=== PATIENT | male | born 1970 | race African-American/Black ===

== ENCOUNTER 2017-10-19 23:54 | Inpatient (IN) | payer OTHER ==
[2017-10-20] MEDS ORDERED: Labetalol HCl 100 MG/20 ML VIAL ONE (00:20)
[2017-10-20] MEDS ORDERED: Furosemide 100 MG/10 ML VIAL ONE (00:38)
[2017-10-20 00:39] LABS: #Eosinphils 0.2 thou/uL (0.0-0.7); #Lymphocytes 1.6 thou/uL (1.20-3.40); #Monocytes 0.7 thou/uL (0.11-0.59); #Neutrophils 8.6 thou/uL (1.40-6.50); %Basophils 0.4 % (0.0-1.0); %Eosinophils 2.2 % (0.0-10.0); %Lymphocytes 14.2 % (21.0-51.0); %Monocytes 6.1 % (0.0-10.0); Hemoglobin 12.1 g/dL (14.0-18.0); Mean Corpuscular Hemoglobin 27.9 pg (27.0-31.0); Mean Corpuscular Volume 82.2 fL (78.0-98.0); Mean Platelet Volume 6.8 fL (7.4-10.4); Platelet Count 323 thou/uL (130-400); RBC Distribution Width 14.2 % (11.5-14.5); Red Blood Cell (RBC) Count 4.32 mill/uL (4.70-6.10); White Blood Cell (WBC) Count 11.2 thou/uL (4.8-10.8)
[2017-10-20 00:44] LABS: Prothrombin Time 13.4 SEC (12.0-14.7)
[2017-10-20 01:02] LABS: ALT (SGPT) 16 U/L (8-55); AST (SGOT) 17 U/L (5-34); Albumin 3.8 g/dL (3.5-5.0); Alkaline Phosphatase 96 U/L (40-150); Anion Gap 13 mmol/L (10-20); BUN (Urea Nitrogen) 17 mg/dL (8.9-20.6); Bilirubin, Total 0.6 mg/dL (0.2-1.2); CK (CPK) 581 U/L (30-200); Calc. Creatinine Clearance 0 mL/min (70-130); Calcium 8.8 mg/dL (7.8-10.44); Carbon Dioxide 26 mmol/L (22-29); Chloride 104 mmol/L (98-107); Estimated GFR-MDRD 81; Globulin 3.4 g/dL (2.4-3.5); Glucose 189 mg/dL (70-105); Potassium 3.7 mmol/L (3.5-5.1); Protein, Total 7.2 g/dL (6.0-8.3); Sodium 139 mmol/L (136-145)
[2017-10-20 01:06] LABS: CKMB 5.6 ng/mL (0-6.6); Troponin I 0.032 ng/mL (< 0.028)
[2017-10-20] MEDS ORDERED: Nitroglycerin 2% Ointment 1 INCH/1 GM Packet ONE (01:13)
[2017-10-20] MEDS ORDERED: Ondansetron ODT 4 MG TAB SL PRN (02:16)
[2017-10-20] MEDS ORDERED: Ondansetron HCl/PF 4 MG/2 ML Vial IVP PRN (02:16)
[2017-10-20 02:25] VITALS: BMI 33.3
[2017-10-20] MEDS ORDERED: Dextrose 5% in Water 1,000 ML IV PRN (03:56)
[2017-10-20] MEDS ORDERED: Dextrose 50% Abboject 50 ML SYRINGE SLOW IVP PRN (03:56)
[2017-10-20] MEDS ORDERED: Ondansetron ODT 4 MG TAB PO PRN (03:56)
[2017-10-20] MEDS ORDERED: Acetaminophen 325 MG TAB PO PRN (03:56)
[2017-10-20] MEDS ORDERED: Insulin Regular 300 UNITS/3 ML VIAL SC PRN ×2 (03:58)
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
[2017-10-20] MEDS: Furosemide 40 MG/4 ML VIAL SLOW IVP SCH ×2 (06:10→15:21)
[2017-10-20] MEDS: Levothyroxine Sodium 50 MCG TAB PO SCH (06:10)
[2017-10-20 07:03] LABS: Troponin I 0.044 ng/mL (< 0.028)
--- NOTE | 2017-10-20 07:59 | RAD ---
1 VIEW CHEST: Date: 10/20/17 HISTORY: Chest pain. FINDINGS: Comparison made to previous exam from 10/07/16. AP view of chest demonstrates cardiomegaly seen. Pulmonary vascular congestion seen. There are diffuse air space opacities bilaterally compatible with pulmonary edema. No evidence of pne umothorax seen. IMPRESSION: Cardiomegaly, pulmonary vascular congestion, and perihilar air space opacities concerning for congest merari heart failure. POS: [facility]
[2017-10-20] MEDS: hydrALAZINE 25 MG TAB PO SCH ×2 (08:38→21:00)
[2017-10-20] MEDS: Ramipril 5 MG CAP PO SCH (08:38)
[2017-10-20] MEDS: Gabapentin 300 MG CAP PO SCH ×2 (08:38→21:00)
[2017-10-20] MEDS: Carvedilol 25 MG TAB PO SCH ×2 (08:39→20:59)
[2017-10-20] MEDS: cloNIDine 0.2 MG TAB PO SCH ×2 (08:39→20:59)
[2017-10-20] MEDS: Potassium Chloride 20 MEQ TAB PO SCH (08:39)
[2017-10-20] MEDS: Famotidine 20 MG TAB PO SCH ×2 (08:39→20:59)
[2017-10-20] MEDS: NIFEdipine XL 90 MG TAB PO SCH (08:40)
[2017-10-20] MEDS: Enoxaparin Sodium 40 MG/0.4 ML SYRINGE SC SCH (08:40)
[2017-10-20] MEDS ORDERED: Naproxen 500 MG TAB PO SCH (09:00)
[2017-10-20] MEDS ORDERED: Albuterol Sulfate 1.25 MG/3 ML NEB NEB PRN (10:57)
[2017-10-20] MEDS: Insulin NPH/Reg Insulin Hm 300 UNITS/3 ML VIAL SC SCH ×2 (11:12→21:05)
[2017-10-20] MEDS: Terbinafine 250 MG TAB PO SCH (11:15)
[2017-10-20 18:32] LABS: Amphetamine Detected (NotDetected); Barbiturates Screen Not Detected (NotDetected); Benzodiazepine Screen Not Detected (NotDetected); Cocaine Metabolite Screen Not Detected (NotDetected); Medtox Control Line Valid? VALID (VALID); Medtox Reader # READER 4; Methadone Not Detected (NotDetected); Methamphetamine Not Detected (NotDetected); Opiate Screen Not Detected (NotDetected); Oxycodone Screen Not Detected (NotDetected); Phencyclidine (PCP) Not Detected (NotDetected); THC/Cannabinoid Screen Not Detected (NotDetected); Tricyclic Screen Not Detected (NotDetected)
[2017-10-20] MEDS ORDERED: diphenhydrAMINE 25 MG CAP PO SCH (21:00)
[2017-10-20] MEDS ORDERED: Alogliptin 25 MG TAB PO SCH (21:00)
[2017-10-21] MEDS: Levothyroxine Sodium 50 MCG TAB PO SCH (05:25)
[2017-10-21] MEDS: Furosemide 40 MG/4 ML VIAL SLOW IVP SCH (05:25)
[2017-10-21 06:17] LABS: #Eosinphils 0.2 thou/uL (0.0-0.7); #Lymphocytes 1.6 thou/uL (1.20-3.40); #Monocytes 0.7 thou/uL (0.11-0.59); #Neutrophils 4.7 thou/uL (1.40-6.50); %Basophils 0.5 % (0.0-1.0); %Eosinophils 3.4 % (0.0-10.0); %Lymphocytes 21.4 % (21.0-51.0); %Monocytes 10.1 % (0.0-10.0); %Neutrophils 64.6 % (42.0-75.0); Hemoglobin 10.7 g/dL (14.0-18.0); Mean Corpuscular HGB CONC 32.5 g/dL (32.0-36.0); Mean Corpuscular Hemoglobin 27.5 pg (27.0-31.0); Mean Corpuscular Volume 84.7 fL (78.0-98.0); Mean Platelet Volume 7.4 fL (7.4-10.4); Platelet Count 292 thou/uL (130-400); RBC Distribution Width 14.3 % (11.5-14.5); Red Blood Cell (RBC) Count 3.88 mill/uL (4.70-6.10); White Blood Cell (WBC) Count 7.2 thou/uL (4.8-10.8)
[2017-10-21 06:44] LABS: Anion Gap 13 mmol/L (10-20); BUN (Urea Nitrogen) 24 mg/dL (8.9-20.6); Calc. Creatinine Clearance 96 mL/min (70-130); Carbon Dioxide 25 mmol/L (22-29); Cardiac Risk 3.9 (Less than 4.5); Chloride 106 mmol/L (98-107); Cholesterol 154 mg/dl (< 200 Desired); Estimated GFR-MDRD 61; Glucose 80 mg/dL (70-105); HDL Cholesterol 40 mg/dL (>60 Neg Risk); LDL Cholesterol, Calculated 87 mg/dL; Phosphorus 4.7 mg/dL (2.3-4.7); Potassium 3.3 mmol/L (3.5-5.1); Sodium 141 mmol/L (136-145); Triglycerides 136 mg/dL (Less than 150)
--- NOTE | 2017-10-21 08:56 | PDOC.FM ---
- Subjective Subjective: 47 yo M with PHx of HFrEF, HTN, DM and hypothyroidism here with CHF exacerbation. Pt states that his chest pain has resolved and he is breathing easier today than yesterday. There were no acute events over night - Objective MAR Reviewed: Yes Vital Signs & Weight: Vital Signs (12 hours) Temp Pulse Resp BP BP Pulse Ox 10/21/17 04:04 97.4 F L 70 17 131/76 94 L 10/20/17 23:48 94 L 10/20/17 21:02 118/65 10/20/17 21:00 118/65 10/20/17 20:59 118/65 Weight Weight 109.86 kg I&O: 10/20/17 10/21/17 10/22/17 06:59 06:59 06:59 Intake Total 490 Output Total 1200 Balance -710 Result Diagrams: 10/21/17 05:20 10/21/17 05:20 <Christian Ashley - Last Filed: 10/21/17 08:54> - Objective Vital Signs & Weight: Vital Signs (12 hours) Temp Pulse Resp BP Pulse Ox 10/21/17 09:33 70 122/66 10/21/17 08:00 98.2 F 70 18 94 L Weight Weight 109.86 kg I&O: 10/20/17 10/21/17 10/22/17 06:59 06:59 06:59 Intake Total 490 Output Total 1200 Balance -710 Result Diagrams: 10/21/17 05:20 10/21/17 05:20 <Rocio Davis - Last Filed: 10/21/17 16:19> Phys Exam - Physical Examination Constitutional: NAD HEENT: moist MMs, sclera anicteric Neck: no JVD, full ROM Respiratory: no wheezing, no rhonchi Mild rales in bases Cardiovascular: RRR, no significant murmur Gastrointestinal: soft, non-tender Musculoskeletal: pulses present 1+ pitting edema on to R tibia, trace on L LE Neurological: non-focal, moves all 4 limbs Psychiatric: normal affect, A&O x 3 Skin: no rash, normal turgor <Christian Ashley - Last Filed: 10/21/17 08:54> Dx/Plan (1) Acute exacerbation of CHF (congestive heart failure) Code(s): I50.9 - HEART FAILURE, UNSPECIFIED Status: Acute (2) Elevated troponin Code(s): R74.8 - ABNORMAL LEVELS OF OTHER SERUM ENZYMES Status: Acute (3) Leukocytosis Code(s): D72.829 - ELEVATED WHITE BLOOD CELL COUNT, UNSPECIFIED Status: Acute (4) Prolonged QT interval Code(s): R94.31 - ABNORMAL ELECTROCARDIOGRAM [ECG] [EKG] Status: Acute (5) Hypertensive urgency Code(s): I16.0 - HYPERTENSIVE URGENCY Status: Acute (6) Anemia, normocytic normochromic Code(s): D64.9 - ANEMIA, UNSPECIFIED Status: Chronic (7) Diabetes type 2, controlled Code(s): E11.9 - TYPE 2 DIABETES MELLITUS WITHOUT COMPLICATIONS Status: Chronic - Plan Plan: Acute Hypoxic Respiratory Failure 2/2 HFrEF exacerbation - Pt net output 710 mL, and symptomatically much improved though he still has an O2 requirement. - echo shows EF of 40-45% with moderate MR and severe LA dilation - will work to wean O2 today, home when back on room air - daily wts/ strict IO - fluid restriction Normocytic Anemia - Hg 12.1, no 10.7 - Given net diuresis yesterday, I would have expected a increase. No concern for acute bleed. Pt denies bloody stool. Will order FOBT Leukocytosis - resolved Prolonged QTc - monitor on tele HTN - continue home meds GERD - continue home meds IDDM - ACHS accuchecks - SSI - continue home 70/30 Hypothyroidism - TSH normal range - continue home synthroid Peripheral Neuropathy - continue home gabapentin Hypertensive Urgency - resolved Elevated Troponin - down trending after 3 Atypical CP - resolved Dispo: Likely < 48h. <Christian Ashley - Last Filed: 10/21/17 08:54> Attending Addendum - Attending Addendum Date/Time: 10/21/17 8703 I personally evaluated the patient and discussed the management with Dr. Aguilar and Dr. Ashley I agree with the History, Examination, Assessment and Plan documented above with any addition or exceptions noted below. Concern for secondary HTN. Will rule out DELISA due to presentation of HTN urgency and now elevated Cr. Renal sono with dopplers today. Still requiring supplemental O2. Evaluate walking O2 sat. No pulmonary HTN on ECHO reported. Heart failure mild. Will obtain CT chest to further evaluate lung parenchyma. Will start treatment for mild COPD as well. Patient with history of smoking. UDS pos. Likely contribution to present condition. Susi <Rocio Davis - Last Filed: 10/21/17 16:19>
[2017-10-21] MEDS ORDERED: Potassium Chloride 20 MEQ TAB PO SCH (09:00)
[2017-10-21] MEDS: Insulin NPH/Reg Insulin Hm 300 UNITS/3 ML VIAL SC SCH (09:32)
[2017-10-21] MEDS: NIFEdipine XL 90 MG TAB PO SCH (09:33)
[2017-10-21] MEDS: Famotidine 20 MG TAB PO SCH (09:33)
[2017-10-21] MEDS: Potassium Chloride 20 MEQ TAB PO SCH (09:34)
[2017-10-21] MEDS: Gabapentin 300 MG CAP PO SCH (09:34)
[2017-10-21] MEDS: hydrALAZINE 25 MG TAB PO SCH (09:34)
[2017-10-21] MEDS: Carvedilol 25 MG TAB PO SCH (09:34)
[2017-10-21] MEDS: cloNIDine 0.2 MG TAB PO SCH (09:34)
[2017-10-21] MEDS: Ramipril 5 MG CAP PO SCH (09:34)
[2017-10-21] MEDS: Enoxaparin Sodium 40 MG/0.4 ML SYRINGE SC SCH (09:35)
[2017-10-21] MEDS: Terbinafine 250 MG TAB PO SCH (09:35)
--- NOTE | 2017-10-21 12:42 | CT ---
CT CHEST WITHOUT CONTRAST: Date: 10/21/17 HISTORY: Hypoxia, chest pain, shortness of breath. FINDINGS: Absence of IV contrast reduces the sensitivity of exam, particularly for evaluation of mediastinal hi lar, and vascular structures. No evidence of aneurysmal dilatation of the thoracic aorta is seen. No pericardial effusion is noted. There are tiny bilateral pleural effusions with adjacent mild infiltrate/atelectatic changes. No pne umothoraces, lobar consolidation, pulmonary nodules/lung masses are seen. There are degenerative chávez ges in the spine. IMPRESSION: Bilateral tiny pleural effusions with adjacent mild atelectatic changes versus mild infiltrates. POS: [facility]
--- NOTE | 2017-10-21 14:59 | ULT ---
RENAL SONOGRAM RENAL DOPPLER EVALUATION WITH SPECTRAL ANALYSIS AND COLOR FLOW EVALUATION: DATE: 10/21/17. HISTORY: Secondary hypertension. FINDINGS: The kidneys demonstrate a normal sonographic appearance bilaterally without evidence of a renal mass, renal calculus, or hydronephrosis. The right kidney measures 9 cm x 4.8 cm with the left kidney ceci suring 10.4 cm x 4.9 cm. The urinary bladder demonstrates a normal sonographic appearance. The prevoid urinary bladder volume is 193.5 mL. RENAL DOPPLER EVALUATION WITH SPECTRAL ANALYSIS AND COLOR FLOW EVALUATION: This portion of the examination is limited as the patient refused to remain stationary and following breathing instructions. A peak systolic velocity in the left renal artery is significantly decreased at 36.6 cm/s. Peak systolic velocity in the right renal artery is 13.8 cm/s with a peak systolic ve locity in the abdominal aorta of 142.4 cm/s. The right renal artery to aorta ratio was 0.73 and the left renal artery to aorta ratio of 0.26. The resistive index in the right arcuate artery is 0.75 and on the left is 0.68. IMPRESSION: 1. Normal appearance of the bilateral kidneys without evidence of hydronephrosis. 2. Limited evaluation of the renal Doppler portion of the examination. There is an asymmetrically d iminished peak systolic velocity in the left renal artery. I am unsure if this is secondary to techn ique and patient's inability to follow instructions or whether this is a true value and represents di minished peak systolic velocity due to a more proximal stenosis. If the patient is unable to have a contrasted CT angiogram of the abdomen, a noncontrast MRA of the abdomen may be helpful for further e valuation. POS: [facility]
[2017-10-21 17:10] VITALS: BP 105/63; TEMP 97.2
[2017-10-21] MEDS ORDERED: predniSONE 20 MG TAB PO SCH (17:15)
--- NOTE | 2017-10-22 02:27 | DIS-2 ---
DATE OF ADMISSION: 10/20/2017 DATE OF DISCHARGE: 10/21/2017 RESIDENT: Christian Ashley D.O. ADMITTING ATTENDING: Rocio Davis M.D. DISCHARGE ATTENDING: Rocio Davis M.D. CONSULTS: None. PROCEDURES: Echocardiogram on 10/20/2017, finding a mildly increased left ventricle ejection fractio n of 40%-45%, severe left atrial dilation, moderate mitral regurgitation, mild tricuspid regurgitatio n. Chest x-ray finding cardiomegaly, pulmonary vascular congestion, and perihilar space opacities co ncerning for congestive heart failure. Chest CT on 10/21/2017, finding bilateral tiny pleural effusi ons with adjacent mild atelectatic changes versus mild infiltrates and renal ultrasound on 10/21/2017 , finding normal appearing kidneys without hydronephrosis however limited evaluation of the Doppler. There was found an asymmetrically diminished peak systolic velocity of the left renal artery with re commended follow up CT angio or noncontrast MRA of the abdomen for further evaluation for secondary h ypertension. DISCHARGE MEDICATIONS: Hydralazine 25 mg p.o. b.i.d., Benadryl 50 mg p.o. q.p.m., naproxen 500 mg p. o. b.i.d., methyldopa 1000 mg p.o. b.i.d., famotidine 40 mg p.o. b.i.d., Januvia 100 mg p.o. q.a.m., Catapres 0.2 mg p.o. b.i.d., Lamisil 250 mg p.o. q.a.m., ramipril 10 mg p.o. q.a.m., potassium chlori de 20 mEq p.o. daily, nifedipine 90 mg p.o. daily, levothyroxine 50 mcg p.o. q.a.m., Humulin 70/30 of 60 units subcutaneous b.i.d., gabapentin 600 mg p.o. b.i.d., carvedilol 25 mg p.o. b.i.d. DISCONTINUED MEDICATIONS: None. BRIEF HOSPITAL COURSE: This is a 47-year-old male with a past medical history of diabetes, hypertens ion, congestive heart failure, and hypothyroid, who was admitted for 1-2 weeks of worsening dyspnea o n exertion, orthopnea, and lower extremity edema with a diffuse pleuritic type chest pain. He was ad mitted for concern of congestive heart failure and diuresed over the course of the hospitalization, a s he did have a new oxygen requirement. He is typically on no oxygen, however, required 2 liters of oxygen to maintain saturations above 90%. After administration of IV Lasix, the patient quickly had resolution of symptoms with shortness of breath and chest pain. Initial troponins were indeterminate 0.032 followed by 0.050 and then down trending 0.044, this is likely all related to demand ischemia. In addition, it is noted that on the second day of admission, the patient was slightly hypokalemic at 3.3 this is most likely due to an increased Lasix dose from his typical dose. He also had a sligh t change in his creatinine up to 1.51 also likely due to diuresis and increase Lasix from baseline. Over the course of the second day of admission, the patient was successfully weaned off oxygen and wa s satting 100% with walking oxygen also at 100% on room air prior to discharge. Additionally, while admitted there is concern for the secondary hypertension given that the patient i s on four antihypertensives and still has issues with his blood pressure. Therefore, a workup for se condary hypertension was initiated with renal ultrasound as above. It is recommended that in the out patient setting, patient has been having additional abdominal vascular studies to look for renal tom ry stenosis. The patient also given the patient's habitus, it would be reasonable to have a sleep st udy done in the outpatient setting to look for obstructive sleep apnea as the most likely cause of th is resistant hypertension. DISPOSITION: Stable. DISCHARGE INSTRUCTIONS: 1. Location: [facility]. 2. Activity: Ad-paige. 3. Diet: Heart healthy, low sodium, and 1500 mL fluid restriction. 4. Follow up with PCP within 1 week.
[2017-10-22] MEDS ORDERED: predniSONE 20 MG TAB PO SCH (08:00)
== END 2017-10-21 18:49 | DRG 291 ==
LOC: ERS 23:54 → 2NO 10-20 01:58
PROVIDERS: ADMIT Family Medicine; ATTEND Family Medicine
DX: I11.0 Hypertensive heart disease with heart failure (principal); J96.01 Acute respiratory failure with hypoxia; E11.9 Type 2 diabetes mellitus without complications; I50.23 Acute on chronic systolic (congestive) heart failure; I16.0 Hypertensive urgency; E11.42 Type 2 diabetes mellitus with diabetic polyneuropathy; E03.9 Hypothyroidism, unspecified; R74.8 Abnormal levels of other serum enzymes; D72.829 Elevated white blood cell count, unspecified; D64.9 Anemia, unspecified; K21.9 Gastro-esophageal reflux disease without esophagitis
CPT/HCPCS: 36415; 36416; 71045; 71250; 76700; 76770; 80048; 80053; 80061; 80306; 82550; 82553; 83735; 83880; 84100; 84443; 84484; 85025; 85610; 85730; 93005; 93010; 93306; 96374; 96375; A4216; J1650; J1940

== ENCOUNTER 2019-03-15 12:56 | Outpatient (CLI) | payer OTHER | END 2019-03-15 12:57 | disposition home or self-care (01) | LOC: ULT 12:56 | PROVIDERS: ATTEND Family Medicine | DX: Z53.9 Procedure and treatment not carried out, unspecified reason (principal) | CPT/HCPCS: 93306 ==

== ENCOUNTER 2022-11-07 21:19 | Inpatient (IN) | payer SELFPAY ==
[2022-11-07] MEDS ORDERED: hydrALAZINE 20 MG/ML VIAL ONE (21:53)
[2022-11-07 22:14] LABS: #Basophils 0.1 thou/uL (0.0-0.2); #Eosinphils 0.1 thou/uL (0.0-0.7); #Monocytes 0.8 thou/uL (0.11-0.59); #Neutrophils 6.6 thou/uL (1.40-6.50); %Basophils 0.5 % (0.0-1.0); %Eosinophils 1.5 % (0.0-10.0); %Lymphocytes 20.8 % (21.0-51.0); Hemoglobin 12.2 g/dL (14.0-18.0); Mean Corpuscular HGB CONC 33.4 g/dL (32.0-36.0); Mean Corpuscular Volume 86.7 fl (78.0-98.0); Mean Platelet Volume 9.4 fL (7.4-10.4); Platelet Count 322 10x3/uL (130-400); RBC Distribution Width 13.1 % (11.5-14.5); Red Blood Cell (RBC) Count 4.21 mill/uL (4.70-6.10); White Blood Cell (WBC) Count 9.5 10x3/uL (4.8-10.8)
[2022-11-07 22:23] LABS: ALT (SGPT) 9 U/L (8-55); AST (SGOT) 12 U/L (5-34); Albumin 4.1 g/dL (3.5-5.0); Alkaline Phosphatase 110 U/L (40-110); Anion Gap 15 mmol/L (10-20); BUN (Urea Nitrogen) 28 mg/dL (8.9-20.6); Bilirubin, Total 0.2 mg/dL (0.2-1.2); Calc. Creatinine Clearance 0 mL/min (70-130); Carbon Dioxide 27 mmol/L (22-29); Chloride 100 mmol/L (98-107); Estimated GFR 62; Globulin 3.5 g/dL (2.4-3.5); Glucose 251 mg/dL (70-105); Potassium 3.9 mmol/L (3.5-5.1); Protein, Total 7.6 g/dL (6.0-8.3); Sodium 138 mmol/L (136-145)
[2022-11-07] MEDS ORDERED: niCARdipine 25 MG/10 ML SDV ONE (22:33)
[2022-11-07 22:46] LABS: CKMB 5.1 ng/mL (0-6.6)
[2022-11-07] MEDS ORDERED: Ondansetron ODT 4 MG TAB SL PRN (23:30)
[2022-11-07] MEDS ORDERED: Ondansetron PF 4 MG/2 ML Vial IVP PRN (23:30)
[2022-11-07] MEDS ORDERED: Acetaminophen 325 MG TAB PO PRN (23:30)
[2022-11-08] MEDS ORDERED: Dextrose 5% in Water 1,000 ML IV PRN (00:10)
[2022-11-08] MEDS ORDERED: Dextrose 50% Abboject 50 ML SYRINGE SLOW IVP PRN (00:10)
[2022-11-08] MEDS ORDERED: HumaLOG 300 UNITS/3 ML VIAL SC PRN ×2 (00:10)
[2022-11-08] MEDS ORDERED: Glucagon 1 MG/ML KIT IM PRN (00:10)
[2022-11-08] MEDS ORDERED: Sodium Chloride 0.9% 500 ML IV SCH (00:15)
[2022-11-08] MEDS ORDERED: niCARdipine 25 MG in Sodium Chloride 0.9% 250 ML 250 ML IVPB SCH (00:45)
[2022-11-08] MEDS ORDERED: Carvedilol 25 MG TAB PO SCH ×2 (01:15→08:00)
[2022-11-08] MEDS ORDERED: cloNIDine 0.1mg/24 Hour PATCH TD SCH (02:00)
[2022-11-08 02:52] VITALS: BMI 29.6
[2022-11-08 02:58] VITALS: TEMP 98.4
[2022-11-08 03:18] LABS: Amphetamine Not Detected (NotDetected); Barbiturates Screen Not Detected (NotDetected); Benzodiazepine Screen Not Detected (NotDetected); Cocaine Metabolite Screen Not Detected (NotDetected); Methadone Not Detected (NotDetected); Methamphetamine Not Detected (NotDetected); Opiate Screen Not Detected (NotDetected); Oxycodone Screen Not Detected (NotDetected); Phencyclidine (PCP) Not Detected (NotDetected); THC/Cannabinoid Screen Not Detected (NotDetected); Tricyclic Screen Not Detected (NotDetected)
[2022-11-08] MEDS ORDERED: Famotidine 20 MG TAB PO SCH (09:00)
[2022-11-08] MEDS ORDERED: Aspirin 81 mg Enteric Coated Tablet PO SCH (09:00)
[2022-11-08] MEDS ORDERED: Heparin 5,000 UNITS/ML VIAL SC SCH (09:00)
== END 2022-11-08 02:22 | disposition left against medical advice (07) | DRG 305 ==
LOC: ERS 21:19 → CCU 23:26 → EEVIPCON 23:26
PROVIDERS: ADMIT Internal Medicine; ATTEND Internal Medicine
DX: I16.1 Hypertensive emergency (principal); N17.9 Acute kidney failure, unspecified; I50.32 Chronic diastolic (congestive) heart failure; I11.0 Hypertensive heart disease with heart failure; E78.5 Hyperlipidemia, unspecified; E03.9 Hypothyroidism, unspecified; D63.8 Anemia in other chronic diseases classified elsewhere; K21.9 Gastro-esophageal reflux disease without esophagitis; E11.9 Type 2 diabetes mellitus without complications; E78.00 Pure hypercholesterolemia, unspecified; R77.8 Other specified abnormalities of plasma proteins; Z79.899 Other long term (current) drug therapy; Z79.82 Long term (current) use of aspirin; Z79.84 Long term (current) use of oral hypoglycemic drugs; Z79.890 Hormone replacement therapy
CPT/HCPCS: 36416; 70450; 71045; 80053; 80306; 82553; 83880; 84484; 85025; 93005; 96365; 96366; 96375; 99292; J0360; J1815; J7030

== ENCOUNTER 2025-01-01 12:30 | Inpatient (IN) | payer OTHER, SELFPAY ==
[2025-01-01] MEDS ORDERED: Ondansetron PF 4 MG/2 ML Vial ONE (12:58)
[2025-01-01 13:03] LABS: #Basophils 0.07 10x3/uL (0.0-0.2); #Eosinophils 0.16 10x3/uL (0.0-0.7); #Monocytes 0.76 10x3/uL (0.11-0.59); #Neutrophils 9.22 10x3/uL (1.40-6.50); %Basophils 0.6 % (0.0-1.0); %Eosinophils 1.4 % (0.0-10.0); %Lymphocytes 12.8 % (21.0-51.0); %Monocytes 6.5 % (0.0-10.0); %Neutrophils 78.4 % (42.0-75.0); Hematocrit 34.1 % (42.0-52.0); Hemoglobin 10.6 g/dL (14.0-18.0); Mean Corpuscular Hemoglobin 25.9 pg (27.0-31.0); Mean Corpuscular Volume 83.4 fL (78.0-98.0); Platelet Count 466 10x3/uL (130-400); Red Blood Cell (RBC) Count 4.09 mill/uL (4.70-6.10); White Blood Cell (WBC) Count 11.75 10x3/uL (4.8-10.8)
[2025-01-01 13:39] LABS: ALT (SGPT) Less than 7 U/L (Less than 45); AST (SGOT) 13 U/L (11-34); Albumin 3.1 g/dL (3.1-4.5); Alkaline Phosphatase 89 U/L (40-110); Anion Gap 15 mmol/L (10-20); BUN (Urea Nitrogen) 28 mg/dL (8.4-25.7); Bilirubin, Total 0.3 mg/dL (0.3-1.2); Calc. Creatinine Clearance 0 mL/min (70-130); Calcium 8.5 mg/dL (7.8-10.44); Carbon Dioxide 19 mmol/L (22-29); Chloride 98 mmol/L (98-107); Globulin 5.0 g/dL (2.4-3.5); Glucose 505 mg/dL (70-105); Potassium 4.2 mmol/L (3.5-5.1); Sodium 128 mmol/L (136-145)
[2025-01-01] MEDS ORDERED: hydrALAZINE 20 MG/ML VIAL ONE ×2 (13:49→15:42)
[2025-01-01] MEDS ORDERED: Furosemide 40 MG (4 mL) VIAL ONE (13:49)
[2025-01-01 15:56] LABS: Actual Bicarbonate (HCO3v) 23.6 mEq/L (22-28); Base Excess 1.4 mEq/L (-2.0 to +3.0); Calcium, Ionized (venous) 1.04 mmol/L (1.16-1.32); Chloride (VBG) 100 mmol/L (98-106); Hematocrit-VBG 39 % (42.0-52.0); Hemoglobin (Hb) 13.2 g/dL (13.1-17.2); Potassium (VBG) 3.67 mmol/L (3.70-5.30); Sodium 135 mmol/L (133-146)
[2025-01-01] MEDS ORDERED: Glucagon 1 MG/ML KIT IM PRN (16:10)
[2025-01-01] MEDS ORDERED: Acetaminophen 325 MG TAB PO PRN (16:10)
[2025-01-01 18:30] LABS: Magnesium 1.6 mg/dL (1.6-2.6)
[2025-01-01 18:31] LABS: Cardiac Risk 3.6 (Less than 4.5); Cholesterol 162.0 mg/dl (< 200 Desired); HDL Cholesterol 45.0 mg/dL (>60 Neg Risk); LDL Cholesterol, Calculated 87.0 mg/dL; Triglycerides 149.0 mg/dL (Less than 150)
[2025-01-01] MEDS: Carvedilol 25 MG TAB PO SCH (20:34)
[2025-01-01] MEDS: Heparin 5,000 UNITS/ML VIAL SC SCH (20:34)
[2025-01-01] MEDS: Insulin Glargine 30 UNITS/0.3 ML VIAL SC SCH (20:35)
[2025-01-02 05:10] LABS: #Basophils 0.06 10x3/uL (0.0-0.2); #Eosinophils 0.14 10x3/uL (0.0-0.7); #Monocytes 0.75 10x3/uL (0.11-0.59); #Neutrophils 7.56 10x3/uL (1.40-6.50); %Basophils 0.6 % (0.0-1.0); %Eosinophils 1.4 % (0.0-10.0); %Lymphocytes 13.3 % (21.0-51.0); %Monocytes 7.6 % (0.0-10.0); %Neutrophils 76.8 % (42.0-75.0); Hematocrit 34.4 % (42.0-52.0); Hemoglobin 10.5 g/dL (14.0-18.0); Mean Corpuscular Hemoglobin 25.8 pg (27.0-31.0); Mean Corpuscular Volume 84.5 fL (78.0-98.0); Platelet Count 474 10x3/uL (130-400); Red Blood Cell (RBC) Count 4.07 mill/uL (4.70-6.10); White Blood Cell (WBC) Count 9.85 10x3/uL (4.8-10.8)
[2025-01-02 05:43] LABS: ALT (SGPT) Less than 7 U/L (Less than 45); AST (SGOT) 9 U/L (11-34); Albumin 3.2 g/dL (3.1-4.5); Alkaline Phosphatase 84 U/L (40-110); Anion Gap 12 mmol/L (10-20); BUN (Urea Nitrogen) 29 mg/dL (8.4-25.7); Bilirubin, Total 0.6 mg/dL (0.3-1.2); Calc. Creatinine Clearance 63 mL/min (70-130); Calcium 8.7 mg/dL (7.8-10.44); Carbon Dioxide 27 mmol/L (22-29); Chloride 103 mmol/L (98-107); Globulin 4.4 g/dL (2.4-3.5); Glucose 224 mg/dL (70-105); Potassium 3.5 mmol/L (3.5-5.1); Sodium 138 mmol/L (136-145)
[2025-01-02] MEDS: Ondansetron PF 4 MG/2 ML Vial IVP PRN (08:48)
[2025-01-02] MEDS: NIFEdipine XL 90 MG ER.TAB PO SCH (09:45)
[2025-01-02] MEDS: Spironolactone 25 MG TAB PO SCH (09:46)
[2025-01-02] MEDS: metFORMIN 500 MG TAB PO SCH (09:46)
[2025-01-02] MEDS: Lisinopril 20 MG TAB PO SCH (09:46)
[2025-01-02] MEDS: Insulin Glargine 30 UNITS/0.3 ML VIAL SC SCH ×2 (09:53→20:55)
[2025-01-02 14:26] LABS: Bacteria/HPF None Seen HPF (None Seen); Glucose, Urine (Dipstick) >=1000 mg/dL (Negative); Leukocyte 25 Leu/uL (Negative); Protein, Urine (Dipstick) 50 mg/dL (Neg-Trace); Specific Gravity, Urine 1.018 (1.002-1.036)
[2025-01-02] MEDS: Transdermal Patch Removal TOP SCH (21:08)
[2025-01-03 04:35] LABS: #Basophils 0.06 10x3/uL (0.0-0.2); #Eosinophils 0.21 10x3/uL (0.0-0.7); #Monocytes 0.80 10x3/uL (0.11-0.59); #Neutrophils 7.62 10x3/uL (1.40-6.50); %Basophils 0.6 % (0.0-1.0); %Eosinophils 2.0 % (0.0-10.0); %Lymphocytes 16.8 % (21.0-51.0); %Monocytes 7.6 % (0.0-10.0); %Neutrophils 72.7 % (42.0-75.0); Hematocrit 35.6 % (42.0-52.0); Hemoglobin 10.9 g/dL (14.0-18.0); Mean Corpuscular Hemoglobin 26.0 pg (27.0-31.0); Mean Corpuscular Volume 84.8 fL (78.0-98.0); Platelet Count 473 10x3/uL (130-400); Red Blood Cell (RBC) Count 4.20 mill/uL (4.70-6.10); White Blood Cell (WBC) Count 10.48 10x3/uL (4.8-10.8)
[2025-01-03 04:51] LABS: ALT (SGPT) Less than 7 U/L (Less than 45); AST (SGOT) 11 U/L (11-34); Albumin 3.0 g/dL (3.1-4.5); Alkaline Phosphatase 80 U/L (40-110); Anion Gap 16 mmol/L (10-20); BUN (Urea Nitrogen) 27 mg/dL (8.4-25.7); Bilirubin, Total 0.5 mg/dL (0.3-1.2); Calc. Creatinine Clearance 70 mL/min (70-130); Calcium 8.6 mg/dL (7.8-10.44); Carbon Dioxide 24 mmol/L (22-29); Chloride 101 mmol/L (98-107); Globulin 4.6 g/dL (2.4-3.5); Glucose 138 mg/dL (70-105); Potassium 3.5 mmol/L (3.5-5.1); Sodium 137 mmol/L (136-145)
[2025-01-03] MEDS: hydrALAZINE 20 MG/ML VIAL SLOW IVP PRN (11:40)
[2025-01-03] MEDS: Insulin Glargine 30 UNITS/0.3 ML VIAL SC SCH (20:29)
[2025-01-04 04:48] LABS: #Basophils 0.06 10x3/uL (0.0-0.2); #Eosinophils 0.17 10x3/uL (0.0-0.7); #Monocytes 0.97 10x3/uL (0.11-0.59); #Neutrophils 6.05 10x3/uL (1.40-6.50); %Basophils 0.7 % (0.0-1.0); %Eosinophils 1.9 % (0.0-10.0); %Lymphocytes 18.9 % (21.0-51.0); %Monocytes 10.8 % (0.0-10.0); %Neutrophils 67.4 % (42.0-75.0); Hematocrit 32.7 % (42.0-52.0); Hemoglobin 10.2 g/dL (14.0-18.0); Mean Corpuscular Hemoglobin 26.4 pg (27.0-31.0); Mean Corpuscular Volume 84.5 fL (78.0-98.0); Platelet Count 438 10x3/uL (130-400); Red Blood Cell (RBC) Count 3.87 mill/uL (4.70-6.10); White Blood Cell (WBC) Count 8.98 10x3/uL (4.8-10.8)
[2025-01-04 05:08] LABS: ALT (SGPT) Less than 7 U/L (Less than 45); AST (SGOT) 15 U/L (11-34); Albumin 2.9 g/dL (3.1-4.5); Alkaline Phosphatase 71 U/L (40-110); Anion Gap 13 mmol/L (10-20); BUN (Urea Nitrogen) 27 mg/dL (8.4-25.7); Bilirubin, Total 0.4 mg/dL (0.3-1.2); Calc. Creatinine Clearance 60 mL/min (70-130); Calcium 8.4 mg/dL (7.8-10.44); Carbon Dioxide 25 mmol/L (22-29); Chloride 102 mmol/L (98-107); Globulin 4.0 g/dL (2.4-3.5); Glucose 165 mg/dL (70-105); Potassium 3.4 mmol/L (3.5-5.1); Sodium 137 mmol/L (136-145)
[2025-01-04] MEDS ORDERED: Furosemide 20 MG TAB PO SCH (09:00)
[2025-01-04] MEDS: Furosemide 20 MG TAB PO SCH (09:38)
[2025-01-04] MEDS: Aspirin 81 mg Enteric Coated Tablet PO SCH (09:39)
[2025-01-04] MEDS: Lisinopril 20 MG TAB PO SCH (09:39)
[2025-01-04] MEDS: Insulin Glargine 30 UNITS/0.3 ML VIAL SC SCH (09:40)
[2025-01-04] MEDS: Carvedilol 25 MG TAB PO SCH (14:39)
[2025-01-04] MEDS: NIFEdipine XL 30 MG ER.TAB PO SCH (14:39)
[2025-01-04] MEDS ORDERED: Carvedilol 25 MG TAB PO SCH (17:00)
[2025-01-05 04:37] LABS: #Basophils 0.05 10x3/uL (0.0-0.2); #Eosinophils 0.27 10x3/uL (0.0-0.7); #Monocytes 1.10 10x3/uL (0.11-0.59); #Neutrophils 6.16 10x3/uL (1.40-6.50); %Basophils 0.5 % (0.0-1.0); %Eosinophils 2.8 % (0.0-10.0); %Lymphocytes 21.0 % (21.0-51.0); %Monocytes 11.4 % (0.0-10.0); %Neutrophils 64.1 % (42.0-75.0); Hematocrit 33.1 % (42.0-52.0); Hemoglobin 10.2 g/dL (14.0-18.0); Mean Corpuscular Hemoglobin 26.4 pg (27.0-31.0); Mean Corpuscular Volume 85.5 fL (78.0-98.0); Platelet Count 418 10x3/uL (130-400); Red Blood Cell (RBC) Count 3.87 mill/uL (4.70-6.10); White Blood Cell (WBC) Count 9.62 10x3/uL (4.8-10.8)
[2025-01-05 04:48] LABS: ALT (SGPT) Less than 7 U/L (Less than 45); AST (SGOT) 13 U/L (11-34); Albumin 2.9 g/dL (3.1-4.5); Alkaline Phosphatase 75 U/L (40-110); Anion Gap 12 mmol/L (10-20); BUN (Urea Nitrogen) 26 mg/dL (8.4-25.7); Bilirubin, Total 0.3 mg/dL (0.3-1.2); Calc. Creatinine Clearance 71 mL/min (70-130); Calcium 8.7 mg/dL (7.8-10.44); Carbon Dioxide 26 mmol/L (22-29); Chloride 102 mmol/L (98-107); Globulin 4.3 g/dL (2.4-3.5); Glucose 98 mg/dL (70-105); Potassium 3.6 mmol/L (3.5-5.1); Sodium 136 mmol/L (136-145)
[2025-01-05] MEDS: NIFEdipine XL 60 MG ER.TAB PO SCH (09:53)
[2025-01-05] MEDS: Carvedilol 25 MG TAB PO SCH (09:53)
[2025-01-05] MEDS: Insulin Glargine 30 UNITS/0.3 ML VIAL SC SCH ×2 (09:54→19:53)
[2025-01-05] MEDS ORDERED: Iopamidol-370 76% 500 ML MDV (1 ML CHARGE) ONE (11:24)
[2025-01-06 04:31] LABS: #Basophils 0.06 10x3/uL (0.0-0.2); #Eosinophils 0.25 10x3/uL (0.0-0.7); #Monocytes 0.88 10x3/uL (0.11-0.59); #Neutrophils 5.19 10x3/uL (1.40-6.50); %Basophils 0.8 % (0.0-1.0); %Eosinophils 3.2 % (0.0-10.0); %Lymphocytes 18.6 % (21.0-51.0); %Monocytes 11.2 % (0.0-10.0); %Neutrophils 65.9 % (42.0-75.0); Hematocrit 31.9 % (42.0-52.0); Hemoglobin 9.8 g/dL (14.0-18.0); Mean Corpuscular Hemoglobin 26.5 pg (27.0-31.0); Mean Corpuscular Volume 86.2 fL (78.0-98.0); Platelet Count 388 10x3/uL (130-400); Red Blood Cell (RBC) Count 3.70 mill/uL (4.70-6.10); White Blood Cell (WBC) Count 7.86 10x3/uL (4.8-10.8)
[2025-01-06 05:28] LABS: ALT (SGPT) Less than 7 U/L (Less than 45); AST (SGOT) 23 U/L (11-34); Albumin 2.9 g/dL (3.1-4.5); Alkaline Phosphatase 70 U/L (40-110); Anion Gap 11 mmol/L (10-20); BUN (Urea Nitrogen) 27 mg/dL (8.4-25.7); Bilirubin, Total 0.2 mg/dL (0.3-1.2); Calc. Creatinine Clearance 60 mL/min (70-130); Calcium 8.7 mg/dL (7.8-10.44); Carbon Dioxide 25 mmol/L (22-29); Chloride 101 mmol/L (98-107); Globulin 4.3 g/dL (2.4-3.5); Glucose 193 mg/dL (70-105); Potassium 4.2 mmol/L (3.5-5.1); Sodium 133 mmol/L (136-145)
[2025-01-07 04:40] LABS: ALT (SGPT) Less than 7 U/L (Less than 45); AST (SGOT) 20 U/L (11-34); Albumin 3.0 g/dL (3.1-4.5); Alkaline Phosphatase 73 U/L (40-110); Anion Gap 13 mmol/L (10-20); BUN (Urea Nitrogen) 32 mg/dL (8.4-25.7); Bilirubin, Total 0.2 mg/dL (0.3-1.2); Calc. Creatinine Clearance 55 mL/min (70-130); Calcium 8.6 mg/dL (7.8-10.44); Carbon Dioxide 24 mmol/L (22-29); Chloride 102 mmol/L (98-107); Globulin 4.3 g/dL (2.4-3.5); Glucose 144 mg/dL (70-105); Potassium 4.1 mmol/L (3.5-5.1); Sodium 135 mmol/L (136-145)
[2025-01-07 05:48] LABS: #Basophils 0.06 10x3/uL (0.0-0.2); #Eosinophils 0.22 10x3/uL (0.0-0.7); #Monocytes 1.04 10x3/uL (0.11-0.59); #Neutrophils 5.96 10x3/uL (1.40-6.50); %Basophils 0.7 % (0.0-1.0); %Eosinophils 2.5 % (0.0-10.0); %Lymphocytes 17.5 % (21.0-51.0); %Monocytes 11.7 % (0.0-10.0); %Neutrophils 67.3 % (42.0-75.0); Hematocrit 32.1 % (42.0-52.0); Hemoglobin 9.9 g/dL (14.0-18.0); Mean Corpuscular Hemoglobin 26.3 pg (27.0-31.0); Mean Corpuscular Volume 85.4 fL (78.0-98.0); Platelet Count 420 10x3/uL (130-400); Red Blood Cell (RBC) Count 3.76 mill/uL (4.70-6.10); White Blood Cell (WBC) Count 8.86 10x3/uL (4.8-10.8)
[2025-01-07] MEDS: Spironolactone 25 MG TAB PO SCH (10:12)
[2025-01-07] MEDS: PNEUMOC 20-VAL CONJ-DIP CRM/PF 0.5 ML SYRINGE IM ONE (11:40)
[2025-01-07 20:35] LABS: INR-International Normal Ratio 1.0; PTT 37.3 sec (22.9-36.1); Prothrombin Time 13.0 sec (12.0-14.7)
[2025-01-08 05:18] VITALS: BMI 24.3
[2025-01-08 05:24] LABS: #Basophils 0.05 10x3/uL (0.0-0.2); #Eosinophils 0.17 10x3/uL (0.0-0.7); #Monocytes 1.04 10x3/uL (0.11-0.59); #Neutrophils 7.55 10x3/uL (1.40-6.50); %Basophils 0.5 % (0.0-1.0); %Eosinophils 1.7 % (0.0-10.0); %Lymphocytes 12.7 % (21.0-51.0); %Monocytes 10.3 % (0.0-10.0); %Neutrophils 74.6 % (42.0-75.0); Hematocrit 34.5 % (42.0-52.0); Hemoglobin 10.4 g/dL (14.0-18.0); Mean Corpuscular Hemoglobin 25.7 pg (27.0-31.0); Mean Corpuscular Volume 85.4 fL (78.0-98.0); Platelet Count 440 10x3/uL (130-400); Red Blood Cell (RBC) Count 4.04 mill/uL (4.70-6.10); White Blood Cell (WBC) Count 10.11 10x3/uL (4.8-10.8)
[2025-01-08 05:51] LABS: ALT (SGPT) 7 U/L (Less than 45); AST (SGOT) 22 U/L (11-34); Albumin 3.2 g/dL (3.1-4.5); Alkaline Phosphatase 72 U/L (40-110); Anion Gap 13 mmol/L (10-20); BUN (Urea Nitrogen) 32 mg/dL (8.4-25.7); Bilirubin, Total 0.3 mg/dL (0.3-1.2); Calc. Creatinine Clearance 66 mL/min (70-130); Calcium 8.9 mg/dL (7.8-10.44); Carbon Dioxide 24 mmol/L (22-29); Chloride 101 mmol/L (98-107); Globulin 4.4 g/dL (2.4-3.5); Glucose 67 mg/dL (70-105); Potassium 4.1 mmol/L (3.5-5.1); Sodium 134 mmol/L (136-145)
[2025-01-08] MEDS: Dextrose 50% Abboject 50 ML SYRINGE SLOW IVP PRN (10:50)
[2025-01-08 14:13] LABS: Metanephrine,Plasma 30.7 pg/mL (0.0-88.0); Normetanephrine,Pl 83.4 pg/mL (0.0-244.0)
[2025-01-08] MEDS ORDERED: Lidocaine 1% w/Epinephrine 1:100K 20 ML VIAL ONE (15:33)
[2025-01-08] MEDS ORDERED: Sodium Bicarbonate 2.5 MEQ/5 ML SDV ONE (15:33)
[2025-01-08 23:31] VITALS: BMI 24.3
[2025-01-09 04:09] LABS: #Basophils 0.08 10x3/uL (0.0-0.2); #Eosinophils 0.25 10x3/uL (0.0-0.7); #Monocytes 1.18 10x3/uL (0.11-0.59); #Neutrophils 6.44 10x3/uL (1.40-6.50); %Basophils 0.9 % (0.0-1.0); %Eosinophils 2.7 % (0.0-10.0); %Lymphocytes 14.7 % (21.0-51.0); %Monocytes 12.6 % (0.0-10.0); %Neutrophils 68.7 % (42.0-75.0); Hematocrit 33.3 % (42.0-52.0); Hemoglobin 10.2 g/dL (14.0-18.0); Mean Corpuscular Hemoglobin 26.2 pg (27.0-31.0); Mean Corpuscular Volume 85.6 fL (78.0-98.0); Platelet Count 413 10x3/uL (130-400); Red Blood Cell (RBC) Count 3.89 mill/uL (4.70-6.10); White Blood Cell (WBC) Count 9.37 10x3/uL (4.8-10.8)
[2025-01-09 04:32] LABS: ALT (SGPT) 7 U/L (Less than 45); AST (SGOT) 17 U/L (11-34); Albumin 3.2 g/dL (3.1-4.5); Alkaline Phosphatase 76 U/L (40-110); Anion Gap 13 mmol/L (10-20); BUN (Urea Nitrogen) 38 mg/dL (8.4-25.7); Bilirubin, Total 0.4 mg/dL (0.3-1.2); Calc. Creatinine Clearance 48 mL/min (70-130); Calcium 8.6 mg/dL (7.8-10.44); Carbon Dioxide 25 mmol/L (22-29); Chloride 99 mmol/L (98-107); Globulin 4.2 g/dL (2.4-3.5); Glucose 224 mg/dL (70-105); Potassium 4.2 mmol/L (3.5-5.1); Sodium 133 mmol/L (136-145)
[2025-01-09] MEDS: Spironolactone 25 MG TAB PO SCH (09:05)
[2025-01-09] MEDS: Heparin 5,000 UNITS/ML VIAL SC SCH (09:10)
[2025-01-10 04:20] LABS: #Basophils 0.07 10x3/uL (0.0-0.2); #Eosinophils 0.40 10x3/uL (0.0-0.7); #Monocytes 1.30 10x3/uL (0.11-0.59); #Neutrophils 6.46 10x3/uL (1.40-6.50); %Basophils 0.7 % (0.0-1.0); %Eosinophils 4.0 % (0.0-10.0); %Lymphocytes 16.3 % (21.0-51.0); %Monocytes 13.2 % (0.0-10.0); %Neutrophils 65.4 % (42.0-75.0); Hematocrit 32.8 % (42.0-52.0); Hemoglobin 10.1 g/dL (14.0-18.0); Mean Corpuscular Hemoglobin 26.5 pg (27.0-31.0); Mean Corpuscular Volume 86.1 fL (78.0-98.0); Platelet Count 395 10x3/uL (130-400); Red Blood Cell (RBC) Count 3.81 mill/uL (4.70-6.10); White Blood Cell (WBC) Count 9.88 10x3/uL (4.8-10.8)
[2025-01-10 04:49] LABS: ALT (SGPT) Less than 7 U/L (Less than 45); AST (SGOT) 19 U/L (11-34); Albumin 3.1 g/dL (3.1-4.5); Alkaline Phosphatase 72 U/L (40-110); Anion Gap 13 mmol/L (10-20); BUN (Urea Nitrogen) 41 mg/dL (8.4-25.7); Bilirubin, Total 0.3 mg/dL (0.3-1.2); Calc. Creatinine Clearance 54 mL/min (70-130); Calcium 8.6 mg/dL (7.8-10.44); Carbon Dioxide 23 mmol/L (22-29); Chloride 99 mmol/L (98-107); Globulin 4.3 g/dL (2.4-3.5); Glucose 126 mg/dL (70-105); Potassium 4.1 mmol/L (3.5-5.1); Sodium 131 mmol/L (136-145)
[2025-01-10] MEDS: Aspirin 81 mg Enteric Coated Tablet PO SCH (09:45)
[2025-01-11 06:16] LABS: #Basophils 0.05 10x3/uL (0.0-0.2); #Eosinophils 0.32 10x3/uL (0.0-0.7); #Monocytes 1.07 10x3/uL (0.11-0.59); #Neutrophils 4.63 10x3/uL (1.40-6.50); %Basophils 0.6 % (0.0-1.0); %Eosinophils 4.1 % (0.0-10.0); %Lymphocytes 21.6 % (21.0-51.0); %Monocytes 13.8 % (0.0-10.0); %Neutrophils 59.6 % (42.0-75.0); Hematocrit 33.6 % (42.0-52.0); Hemoglobin 10.5 g/dL (14.0-18.0); Mean Corpuscular Hemoglobin 26.6 pg (27.0-31.0); Mean Corpuscular Volume 85.3 fL (78.0-98.0); Platelet Count 434 10x3/uL (130-400); Red Blood Cell (RBC) Count 3.94 mill/uL (4.70-6.10); White Blood Cell (WBC) Count 7.77 10x3/uL (4.8-10.8)
[2025-01-11 06:55] LABS: ALT (SGPT) 7 U/L (Less than 45); AST (SGOT) 22 U/L (11-34); Albumin 3.3 g/dL (3.1-4.5); Alkaline Phosphatase 75 U/L (40-110); Anion Gap 11 mmol/L (10-20); BUN (Urea Nitrogen) 41 mg/dL (8.4-25.7); Bilirubin, Total 0.3 mg/dL (0.3-1.2); Calc. Creatinine Clearance 55 mL/min (70-130); Calcium 8.8 mg/dL (7.8-10.44); Carbon Dioxide 25 mmol/L (22-29); Chloride 101 mmol/L (98-107); Globulin 4.5 g/dL (2.4-3.5); Glucose 92 mg/dL (70-105); Potassium 4.1 mmol/L (3.5-5.1); Sodium 133 mmol/L (136-145)
[2025-01-11 16:30] VITALS: BP 144/80; TEMP 98.2
== END 2025-01-11 16:56 | disposition home or self-care (01) | DRG 305 ==
LOC: ERS 12:30 → OBSVTOIN 16:10 → INTOOBSV 16:10 → 2NO 16:10 → T4-B 01-10 21:41
PROVIDERS: ADMIT Family Medicine; ATTEND Family Medicine
PROC: 0TB03ZX Excision of Right Kidney, Percutaneous Approach, Diagnostic (ICD-10-PCS; principal; 2025-01-08)
DX: I16.0 Hypertensive urgency (principal); N17.9 Acute kidney failure, unspecified; E87.1 Hypo-osmolality and hyponatremia; I42.9 Cardiomyopathy, unspecified; I50.1 Left ventricular failure, unspecified; R07.9 Chest pain, unspecified; I11.0 Hypertensive heart disease with heart failure; E11.65 Type 2 diabetes mellitus with hyperglycemia; E78.00 Pure hypercholesterolemia, unspecified; I95.9 Hypotension, unspecified; E87.6 Hypokalemia; Z87.891 Personal history of nicotine dependence; Z79.84 Long term (current) use of oral hypoglycemic drugs; Z79.899 Other long term (current) drug therapy
CPT/HCPCS: 36415; 36416; 50200; 71045; 74178; 76770; 77002; 77012; 78451; 80053; 80061; 81001; 82010; 82088; 82805; 83036; 83735; 83835; 83880; 84244; 84443; 84484; 85025; 85610; 85730; 88305; 88341; 88342; 93005; 93306; 94760; 96374; 96375; 99152; 99153; A9502; J0360; J1644; J1815; J1940; J2250; J2405; J3010; J7070; J7120; J7999; Q9967